=== PATIENT | male | born 1945 | race Caucasian/White ===

== ENCOUNTER → 2021-01-03 | Outpatient (CLI) | payer MEDICARE | LOC: HEART 5 07:57 | DX: I25.10 Atherosclerotic heart disease of native coronary artery without angina pectoris (principal); I10 Essential (primary) hypertension | CPT/HCPCS: 93306 ==

== ENCOUNTER 2021-05-27 00:56 | Emergency (ER) | payer MEDICARE ==
[2021-05-27 02:07] LABS: HEMOGLOBIN 13.7 gm/dl (14.0-17.5); RED BLOOD COUNT 4.45 M/UL (4.20-5.50); WHITE BLOOD COUNT 6.5 K/UL (4.5-11.0)
[2021-05-27 02:30] LABS: BUN/CREATININE RATIO 14 (0-10)
[2021-05-27 02:59] LABS: ADENOVIRUS F 40/41 Not Detected (Negative); ASTROVIRUS Not Detected (Negative); CAMPYLOBACTER Not Detected (Negative); CRYPTOSPORIDIUM Not Detected (Negative); E.COLI 0157 Not Detected (Negative); ENTAMOEBA HISTOLYTICA Not Detected (Negative); ENTEROAGGREGATIVE E.COLI (EAEC Not Detected (Negative); ENTEROPATHOGENIC E.COLI (EPEC) Not Detected (Negative); ENTEROTOXIGENIC E.COLI (ETEC) Not Detected (Negative); GIARDIA LAMBLIA Not Detected (Negative); NOROVIRUS GI/GII Not Detected (Negative); PLESIOMONAS SHIGELLOIDES Not Detected (Negative); ROTOVIRUS A Not Detected (Negative); SALMONELLA Not Detected (Negative); SAPOVIRUS Not Detected (Negative); SHIG/ENTEROINVAS.ECOLI (EIEC) Not Detected (Negative); SHIGA-LIK TOX.PRO.E.COLI (STEC Not Detected (Negative); VIBRIO Not Detected (Negative); VIBRIO CHOLERAE Not Detected (Negative); YERSINIA ENTEROCOLITICA Not Detected (Negative)
[2021-05-27] MEDS ORDERED: ZOFRAN ODT 4 MG4 MG PO (05:01)
[2021-05-27] MEDS ORDERED: FLORASTOR250 MG PO (05:01)
[2021-05-27] MEDS ORDERED: BENTYL 20MG TAB20 MG PO (05:01)
[2021-05-27 10:13] LABS: CLOSTRIDIUM DIFFICILE TOX A/B DETECTED (Negative)
== END 2021-05-27 05:45 | disposition home or self-care (01) ==
LOC: ER1 00:56
PROVIDERS: Physician Assistant
DX: K63.9 Disease of intestine, unspecified (principal); R19.7 Diarrhea, unspecified; I25.10 Atherosclerotic heart disease of native coronary artery without angina pectoris; J44.9 Chronic obstructive pulmonary disease, unspecified; Z95.1 Presence of aortocoronary bypass graft; I25.2 Old myocardial infarction; I10 Essential (primary) hypertension
CPT/HCPCS: 80053; 81001; 82150; 82272; 82550; 82553; 83605; 83690; 84484; 85025; 87086; 87177; 87209; 87449; 87507; 89055; 93005; 99284; Q9967

== ENCOUNTER → 2021-07-10 | Day surgery (SDC) | payer MEDICARE ==
[~2021-07-10] MED LIST: AMLODIPINE BESYL5 MG PO; ARICEPT10 MG PO; ASPIRIN81 MG PO; ATORVASTATIN CA40 MG PO; BENTYL 20MG TAB20 MG PO; COREG 3.125M3.125 MG PO; FLORASTOR250 MG PO; LASIX TAB 20 MG20 MG GT; PROAIR DIGIHAL90 MCG INH; SPIRIVA RESPIMAT4 GM INH; ZOFRAN ODT 4 MG4 MG PO
== END | disposition home or self-care (01) ==
LOC: OR 06:08
DX: A04.72 Enterocolitis due to Clostridium difficile, not specified as recurrent (principal); D12.3 Benign neoplasm of transverse colon; K64.0 First degree hemorrhoids; K64.1 Second degree hemorrhoids; E66.3 Overweight; I10 Essential (primary) hypertension; K57.30 Diverticulosis of large intestine without perforation or abscess without bleeding; E78.00 Pure hypercholesterolemia, unspecified; I48.91 Unspecified atrial fibrillation; Z86.73 Personal history of transient ischemic attack (TIA), and cerebral infarction without residual deficits; Z80.0 Family history of malignant neoplasm of digestive organs; Z87.891 Personal history of nicotine dependence; Z79.82 Long term (current) use of aspirin; Z90.49 Acquired absence of other specified parts of digestive tract; Z95.1 Presence of aortocoronary bypass graft; Z96.22 Myringotomy tube(s) status; Z20.822 Contact with and (suspected) exposure to COVID-19
CPT/HCPCS: J2001; J2704; J7040

== ENCOUNTER 2021-09-11 10:13 | Emergency (ER) | payer MEDICARE ==
[2021-09-11 12:34] LABS: HEMOGLOBIN 13.3 gm/dl (14.0-17.5); RED BLOOD COUNT 4.39 M/UL (4.20-5.50); WHITE BLOOD COUNT 7.4 K/UL (4.5-11.0)
== END 2021-09-11 16:44 | disposition home or self-care (01) ==
LOC: ER1 10:13
PROVIDERS: Physician Assistant
DX: R30.0 Dysuria (principal); I11.9 Hypertensive heart disease without heart failure; E78.5 Hyperlipidemia, unspecified; Z87.440 Personal history of urinary (tract) infections; Z95.1 Presence of aortocoronary bypass graft; Z79.899 Other long term (current) drug therapy
CPT/HCPCS: 80053; 81001; 82550; 82553; 83605; 84484; 85025; 87086; 99284; Q9967